=== PATIENT | male | born 1990 | race Caucasian/White ===

== ENCOUNTER 2016-08-17 01:02 | Emergency (ER) | payer SELFPAY ==
[~2016-08-17] VITALS: Ht 188 cm; Wt 105.0 kg
[~2016-08-17 01:02] MED LIST: (None)3.5 GM OP; AMOXICILLIN500 MG OR; AMOXICILLIN500 MG PO; AMOXICILLIN875 MG PO; CEPHALEXIN500 M1 OR; FLEXERIL PO; GENTAMICIN SULF5 ML OP; NAPROSYN375 MG PO; NAPROSYN500 MG PO; NO; NO HOME MEDS; TYLENOL650 MG RE; ULTRAM50 MG OR
[2016-08-17] MEDS ORDERED: ULTRAM50 M1 PO (02:01)
[2016-08-17] MEDS ORDERED: FLEXERIL PO (02:01)
[2016-08-17 02:22] VITALS: BP 128/74
== END 2016-08-17 02:23 | disposition home or self-care (01) | DRG 563 ==
LOC: ED 01:02
DX: S83.91XA Sprain of unspecified site of right knee, initial encounter (principal); X50.1XXA Overexertion from prolonged static or awkward postures, initial encounter; Y93.89 Activity, other specified; Y92.003 Bedroom of unspecified non-institutional (private) residence as the place of occurrence of the external cause

== ENCOUNTER 2019-04-12 22:26 | Emergency (ER) | payer SELFPAY ==
[~2019-04-12] VITALS: Ht 188 cm; Wt 106.8 kg
[~2019-04-12 22:26] MED LIST changes: +ULTRAM50 M1 PO
[2019-04-12 23:09] LABS: HEMATOCRIT 42.6 % (39.0-50.0); HEMOGLOBIN 14.1 g/dl (14.0-18.0); IMMATURE GRANULOCYTES 0.1 % (0.0-5.0); MEAN CELL VOLUME 86.1 fL CALC (80.0-100.0); MEAN CORPUSCULAR HGB 28.5 pG CALC (26.0-32.0); MEAN CORPUSCULAR HGB CONC 33.1 g/L CALC (32.0-36.0); NEUT# 3.9 thou/uL (1.82-7.42); RED BLOOD COUNT 4.95 mill/uL (4.70-6.10); RED CELL DISTRI WIDTH 12.4 % (11.5-15.5)
[2019-04-12 23:18] LABS: ETHYL ALCOHOL 0 mg/dl (0-30)
[2019-04-13 00:37] LABS: ALBUMIN 4.7 g/dL (3.2-5.0); ALKALINE PHOSPHATASE 69 u/l (38-126); ANION GAP 18 (6-22 (CALC)); BILIRUBIN, TOTAL 0.5 mg/dL (0.0-1.4); BUN 13 mg/dL (9-20); BUN/CREATININE RATIO 15 (12-20 (CALC)); CARBON DIOXIDE 24 mmol/l (22-30); CHLORIDE 102 mmol/l (95-108); CREATININE 0.9 mg/dL (0.7-1.3); GFR > 60 ML/MIN (>=60 (CALC)); GFR FOR AFR.AMER. > 60 ML/MIN (>=60 (CALC)); SGOT/AST 30 u/l (17-59); SODIUM 141 mmol/l (137-146); TOTAL PROTEIN 7.8 g/dL (6.3-8.2)
[2019-04-13 00:41] LABS: POTASSIUM 2.7 mmol/l (3.5-5.1)
[2019-04-13 01:50] VITALS: BP 113/60
== END 2019-04-13 01:50 | disposition home or self-care (01) | DRG 310 ==
LOC: ED 22:26
PROVIDERS: Family Medicine
DX: R00.2 Palpitations (principal); F12.90 Cannabis use, unspecified, uncomplicated
CPT/HCPCS: J2060